=== PATIENT | female | born 1945 | race Caucasian/White ===

== ENCOUNTER → 2016-10-17 | Day surgery (SDC) | payer OTHER ==
[~2016-10-17] MED LIST: BUPIVACAINE HCL PF 0.75% 30 ML VIAL ONE; KETOROLAC TROMETHAMINE 30 MG/ML (IVP) VIAL IV PUSH ONE; LACTATED RINGER'S 1000 ML INJ 1,000 ML ONE; LIDOCAINE 1%/EPINEPHrine 1:100,000 SOLN 20 ML VIAL ONE; LIDOCAINE HCL 2% 20 ML VIAL ONE; MIDAZOLAM HCL 2 MG/2 ML VIAL ONE; ONDANSETRON HCL 4 MG/2 ML VIAL IV PUSH ONE; PROPOFOL 200 MG/20 ML AMP IV ONE; ceFAZolin INJ 1,000 MG VIAL ONE
--- NOTE | 2016-10-17 14:59 | TN ---
cc: THERESE CONTRERAS M.D. DATE OF SURGERY: 10/17/2016 PREOPERATIVE DIAGNOSIS Right foot big toe hallux rigidus, osteoarthritis metatarsophalangeal joint. POSTOPERATIVE DIAGNOSIS Right foot big toe hallux rigidus, osteoarthritis metatarsophalangeal joint. PROCEDURE Right foot big toe hallux rigidus correction with cheilectomy. SURGEON Andrew Contreras MD ASSESSMENT Angella Laird PA-C SPECIMEN None. ESTIMATED BLOOD LOSS None. COMPLICATIONS None. ANESTHESIA General, regional block. CONDITION Stable. TOURNIQUET TIME 26 minutes at 200 mmHg. CONDITION Stable. PLAN OF ACTIVITY Per orders. DETAILS OF PROCEDURE My dental laboratory assistant, Angella Laird PA-C, was present for the entire surgical case. She was medically necessary for the entire case because of the complexity of the case and to facilitate the performance of the procedure. The [place] at the back table was not of the skill set to manipulate the instruments, e.g., the multiple different types of soft tissue retractors and oscillating saw. The patient was brought into the operating room and had satisfactory general anesthesia followed by regional anesthesia by Dr. Lindsey Martinez of the Department of Anesthesia. The right lower extremity was prepped and draped in the usual sterile manner. The extremity was exsanguinated by elevation and tourniquet inflated to 200 mmHg. A longitudinal incision made over the MTP joint of the big toe. The extensor hallucis longus was retracted laterally. A capsulotomy was performed. The patient was found to have osteoarthritis involving the MTP joint with a dorsal spur involving the distal phalanx. A cheilectomy was performed with removal of the dorsal spur using the oscillating saw. Also the oscillating saw was used to remove the spurs laterally and medially. [place] was also used to remove the extra spur formation. The patient was found to have dorsiflexion of the toe to 75 degrees at the completion. The soft tissue was repaired using 2-0 Vicryl and 3-0 Vicryl. The skin was approximated with interrupted 3-0 nylon suture. The tourniquet was deflated and sterile dressing was applied. The patient tolerated the procedure and arrived in the recovery room in stable and satisfactory condition. MD MARYJANE Britt/TAYLOR /1:39 PM /2:49 PM
== END | disposition home or self-care (01) ==
LOC: ESDC 11:13
PROVIDERS: ATTEND Orthopaedic Surgery Orthopaedic Surgery of the Spine
DX: M20.21 Hallux rigidus, right foot (principal); M19.071 Primary osteoarthritis, right ankle and foot
CPT/HCPCS: 01480; 28289; J0690; J1885; J2250; J2405; J3010; J7120